=== PATIENT | female | born 1955 | race American Indian/Alaskan Native ===

== ENCOUNTER 2016-04-10 11:03 | Outpatient (CLI) | payer MEDICAID ==
[2016-04-10] MEDS ORDERED: NACL ONE ×2 (12:11→13:13)
--- NOTE | 2016-04-10 15:48 | Nuclear Medicine Report ---
BONE SCAN: History: Right breast cancer. Comparison: Bone scan dated 01/17/16. CT chest abdomen and pelvis performed 01/17/16. After injection of isotope, gamma camera imaging of the bony system was done. There is a normal uptake of isotope throughout the bony structures without areas of significantly increased or decreased uptake. Normal uptake in the urinary system is seen. IMPRESSION: Negative bone scan. No change since 01/17/16.
--- NOTE | 2016-04-10 18:31 | Cat Scan Report ---
FINAL REPORT EXAM: CT ABDOMEN PELVIS W CON HISTORY: MALIGNANT NEOPLASM OF RIGHT BREAST TECHNIQUE: Serial axial images through the abdomen and pelvis with coronal and sagittal reconstruction. 100 milliliters Omni 300 PRIORS: CT abdomen pelvis from 01/17/2016 FINDINGS: There is mild atelectasis in the dependent portion of the lung bases. No pleural effusion is seen. No focal hepatic lesion is identified. The gallbladder, pancreas, spleen and adrenal glands appear within normal limits. Kidneys appear normal. Aorta is normal in caliber. Bladder is decompressed. No gross abnormality is seen in the uterus or adnexa. No free fluid. No gross bowel abnormality is identified. Previously seen sclerotic lesions in the spine, pelvis and proximal left femur are re-identified. These appear similar to the prior study. IMPRESSION: 1. No abnormal mass or fluid collection is identified in the abdomen or pelvis. 2. Sclerotic lesions are re-identified in the axial skeleton and proximal left femur. This is consistent with metastatic disease given the history provided. The appearance is similar to the prior study.
--- NOTE | 2016-04-10 18:41 | Cat Scan Report ---
FINAL REPORT EXAM: CT CHEST W CON HISTORY: MALIGNANT NEOPLASM OF RIGHT BREAST TECHNIQUE: Serial axial images through the chest during intravenous administration of 100 milliliters Omni 300 contrast with coronal and sagittal reconstruction. Abdomen pelvis images are also included. PRIORS: CT scan of the chest from 01/17/2016 FINDINGS: There is mild atelectasis in the dependent portion of the lungs. No pleural effusion is seen. No abnormal mass is identified in the lungs. No mediastinal adenopathy is identified. The heart measures approximately 12.1 centimeters in length. No gross abnormality is seen in the visualized portion of the abdomen. Spiculated lesion in the lateral aspect of the right breast appears similar to the prior study. There are surgical clips in the right axilla. Previously described sclerotic lesions are re-identified in the axial skeleton. These appear similar to the prior study. IMPRESSION: 1. Please refer to report from CT abdomen pelvis from 04/10/2016 for additional information regarding the abdomen and pelvis. 2. Spiculated lesion in the lateral aspect of the right breast is re-identified. This appears similar to the prior study. 3. Sclerotic lesions in the axial skeleton are re-identified. These appear similar to the prior study. This is consistent with metastatic disease.
== END 2016-04-10 11:04 | disposition home or self-care (01) ==
LOC: NM 11:03
PROVIDERS: ATTEND Internal Medicine Hematology & Oncology
DX: C50.411 Malignant neoplasm of upper-outer quadrant of right female breast (principal); J98.11 Atelectasis
CPT/HCPCS: 71260; 74177; 78306; A9503; Q9967

== ENCOUNTER 2016-05-23 09:57 | Outpatient (CLI) | payer MEDICAID ==
--- NOTE | 2016-05-24 08:09 | Vascular Lab Report ---
Right Lower Extremity Venous Duplex Study: Reason for Exam: Pain of the right lower extremity. Comments on the Right: All veins visualized are freely compressible without evidence of internal echogenicity. Flow is spontaneous and phasic throughout. No evidence of acute or chronic thrombus is seen in any of the vessels visualized. Comments on the Left: A limited duplex study was done of the proximal veins of the left lower extremity. All veins visualized are freely compressible without evidence of internal echogenicity. Flow is spontaneous and phasic throughout. No evidence of acute or chronic thrombus is seen in any of the vessels visualized. Impression: No evidence of acute or chronic deep venous thrombosis in the right lower extremity.
== END 2016-05-23 09:58 | disposition home or self-care (01) ==
LOC: VAS 09:57
PROVIDERS: ATTEND Internal Medicine Hematology & Oncology
DX: M79.604 Pain in right leg (principal); C50.411 Malignant neoplasm of upper-outer quadrant of right female breast

== ENCOUNTER 2016-07-27 09:07 | Outpatient (CLI) | payer MEDICAID ==
[2016-07-27 10:24] LABS: Blood Urea Nitrogen 17 mg/dL (7-17)
--- NOTE | 2016-07-27 14:59 | Nuclear Medicine Report ---
BONE SCAN: History: Bone pain. Comparison: 04/10/16. After injection of isotope, gamma camera imaging of the bony system was done. There is a normal uptake of isotope throughout the bony structures without areas of significantly increased or decreased uptake. Normal uptake in the urinary system is seen. IMPRESSION: Unremarkable bone scan. No abnormal radiotracer uptake is appreciated.
--- NOTE | 2016-07-28 14:28 | Cat Scan Report ---
CT CHEST, ABDOMEN AND PELVIS WITH CONTRAST INDICATION: Malignant neoplasm of upper-outer quadrant of right breast. COMPARISON: 04/10/2016. FINDINGS: Chest, abdomen and pelvis CT performed following oral contrast and intravenous administration of 100 cc of Omnipaque 300. CHEST: Unremarkable heart and great vessels. Some motion artifact. No effusions or size significant adenopathy. Patent central airway. Normal thyroid. Stable right axillary surgical clips and approximately 2.8 x 1.2 cm spiculated density deep in the right breast, close to the chest wall as on axial image 56, series 2. No focal suspicious lung masses. Right hemidiaphragm mildly elevated. Nonspecific distal esophageal wall prominence/thickening, not excluded for gastroesophageal reflux and/or hiatal hernia, amongst others. ABDOMEN: Liver, spleen, gallbladder, pancreas, adrenals, nonaneurysmal abdominal aorta with few atherosclerotic changes, IVC and kidneys within normal limits. Opacified GI tract nonobstructive. Mild ascending and transverse colon stool. No ascites or size significant adenopathy. PELVIS: Uterus, adnexa/ovaries, urinary bladder and rectosigmoid appear within normal limits. Few pelvic phleboliths. No free fluid or significant adenopathy. Multiple bony metastases involving, though not limited to T1, T3, T6, T9, T10, T11, T12, L1, L3 and L4 again noted, including multiple in the pelvis, including right acetabulum posteriorly. CONCLUSION: No significant interval change in multiple bony metastases and deep spiculated lesion in the right breast, amongst others, as described. Please correlate. Thank you for the opportunity to participate in this patient's care.
== END 2016-07-27 09:08 | disposition home or self-care (01) ==
LOC: NM 09:07
PROVIDERS: ATTEND Internal Medicine Hematology & Oncology
DX: C79.51 Secondary malignant neoplasm of bone (principal); C50.411 Malignant neoplasm of upper-outer quadrant of right female breast; M89.8X9 Other specified disorders of bone, unspecified site; J98.6 Disorders of diaphragm; I87.8 Other specified disorders of veins
CPT/HCPCS: 36415; 71260; 74177; 78306; 82565; 84520; A9503; Q9967

== ENCOUNTER 2016-12-27 08:55 | Outpatient (CLI) | payer MEDICAID ==
[2016-12-27 09:52] LABS: Blood Urea Nitrogen 15 mg/dL (7-17)
--- NOTE | 2016-12-27 13:19 | Cat Scan Report ---
CT scan of chest abdomen and pelvis with IV contrast: History: Malignant neoplasm upper quadrant right breast Findings: There is ill-defined 2.5 cm diameter spiculated mass identified adjacent to the chest wall at right breast. No endobronchial or mediastinal mass. No mediastinal, hilar or axillary adenopathy. No pleural or pericardial effusion. Normal lung parenchyma. No discrete nodularity or consolidation. Normal liver spleen pancreas and gallbladder. Normal adrenals kidneys and bladder. No free intra-peritoneal fluid or air. No evidence of adenopathy. Gaseous colon with moderate volume stool in colon. No bowel distention. No evidence of appendicitis or diverticulitis. Impression: Spiculated mass right breast. No mediastinal or lung mass. No abdominal mass or adenopathy.
--- NOTE | 2016-12-27 15:17 | Nuclear Medicine Report ---
Whole body bone scan: History: Malignant neoplasm of upper quadrant right breast. Findings: After injection of isotope, gamma camera imaging of the bony system was done. There is a normal uptake of isotope throughout the bony structures without areas of significantly increased or decreased uptake. Normal uptake in the urinary system is seen. IMPRESSION: Normal bone scan.
== END 2016-12-27 08:56 | disposition home or self-care (01) ==
LOC: NM 08:55
PROVIDERS: ATTEND Internal Medicine Hematology & Oncology
DX: C50.411 Malignant neoplasm of upper-outer quadrant of right female breast (principal)
CPT/HCPCS: 36415; 71260; 74177; 78306; 82565; 84520; A9503; Q9967

== ENCOUNTER 2017-02-13 12:48 | Outpatient (CLI) | payer MEDICAID ==
--- NOTE | 2017-02-14 10:35 | Mammography Report ---
BILATERAL DIGITAL SCREENING MAMMOGRAM WITH CAD: 02/13/17 12:48:00 CLINICAL: Routine screening.Breast cancer survivor status post right partial mastectomy ,radiation therapy and chemotherapy. COMPARISON:None available. However, her last mammogram was at [facility]. FINDINGS: The breasts are heterogeneously dense, which may obscure small masses. Right upper outer postsurgical scar. Surgical clips in the right axilla. Mild skin thickening in the right breast. No mass, suspicious architectural distortion or suspicious calcifications. IMPRESSION: No mammographic evidence of malignancy. BI-RADS CATEGORY: 2 -- Benign RECOMMENDATION: Routine mammographic screening in one year. COMMENT: We will attempt to obtain a prior mammogram for comparison. Patient follow-up letters are generated via our [employer] application.
== END 2017-02-13 12:49 | disposition home or self-care (01) ==
LOC: SPVWC 12:48
DX: Z12.31 Encounter for screening mammogram for malignant neoplasm of breast (principal); Z90.11 Acquired absence of right breast and nipple
CPT/HCPCS: 77067; G0202

== ENCOUNTER 2017-05-23 09:17 | Outpatient (CLI) | payer MEDICAID ==
[2017-05-23 10:41] LABS: Blood Urea Nitrogen 9 mg/dL (7-17)
--- NOTE | 2017-05-23 15:01 | Nuclear Medicine Report ---
BONE SCAN: History: Breast cancer, bone pain. After injection of isotope, gamma camera imaging of the bony system was done. There is a normal uptake of isotope throughout the bony structures without areas of significantly increased or decreased uptake. Normal uptake in the urinary system is seen. IMPRESSION: Normal bone scan.
--- NOTE | 2017-05-23 15:58 | Cat Scan Report ---
FINAL REPORT EXAM: CT CHEST W CON HISTORY: MALIGNANT NEOPLASM OF UPPER-OUTER QUARDRANT OF RIGHT BREAST TECHNIQUE: CT of the chest was performed after the administration of intravenous contrast. Reconstructions were included in the coronal and sagittal planes. PRIORS: CT of the chest from 04/10/2016. FINDINGS: Great vessels: The thoracic aorta is normal in caliber. The great vessels are patent. Lungs and airways: No pleural effusion. No pulmonary nodules or masses. No airspace consolidation. The airways are patent. No bronchiectasis. Mild bilateral dependent atelectasis is seen. Mediastinum, heart, pericardium: No mediastinal lymphadenopathy. No cardiac chamber enlargement. No pericardial effusion. Thoracic inlet, chest wall, axilla: Grossly unchanged spiculated right breast lesion. Right axillary lymph node dissection has been performed. The thyroid gland was not imaged. No axillary lymphadenopathy. Upper abdomen: The visualized structures demonstrate no specific abnormality. Bones: Unchanged scattered sclerotic lesions throughout the thoracic spine and right scapula. IMPRESSION: 1. Stable skeletal metastatic disease. 2. Grossly stable right breast lesion.
--- NOTE | 2017-05-23 16:13 | Cat Scan Report ---
FINAL REPORT EXAM: CT ABDOMEN PELVIS W CON HISTORY: MALIGNANT NEOPLASM OF RIGHT BREAST TECHNIQUE: CT of the abdomen and pelvis was performed after the administration of intravenous contrast. Subsequently, CT of the abdomen and pelvis was performed in the delayed phase. Reconstructions were included in the coronal and sagittal planes. PRIORS: 04/10/2016. FINDINGS: Lower thorax: Mild bibasilar atelectasis is seen. Grossly stable right breast lesion. The visualized portions of the heart are normal. Liver: The liver is normal in attenuation. No intrahepatic biliary duct dilation. No focal hepatic lesions. Gallbladder/ biliary system: No cholelithiasis. The common bile duct appears nondilated. Spleen: No splenic lesions are seen. Pancreas: No pancreatic lesions are seen. No pancreatic duct dilation. Kidneys: 3 millimeter nonspecific low-attenuation left renal lesion is unchanged and is too small to characterize but likely represents a small cyst. No right renal lesions. No hydronephrosis. No ureteral filling defects. Adrenal glands: No adrenal masses. Vasculature: The abdominal and pelvic vasculature is patent without variant anatomy. Lymph nodes: No enlarged lymph nodes are seen in the abdomen or pelvis. Bowel, mesentery, peritoneum: No bowel obstruction. No free fluid or free air. The appendix was not definitively seen. No colonic diverticulosis. No bowel wall thickening. Urinary bladder: No filling defects are seen. Pelvis: Normal anatomy is noted. No masses. Abdominal wall: No abdominal wall hernia or other subcutaneous findings. Bones: Degenerative changes are again seen in the spine. Scattered sclerotic lesions within lumbar spine and pelvis are grossly similar. IMPRESSION: 1. No acute intra-abdominal or intrapelvic process. 2. Grossly stable skeletal metastases.
== END 2017-05-23 09:18 | disposition home or self-care (01) ==
LOC: NM 09:17
PROVIDERS: ATTEND Internal Medicine Hematology & Oncology
DX: C79.51 Secondary malignant neoplasm of bone (principal); C50.411 Malignant neoplasm of upper-outer quadrant of right female breast; J98.11 Atelectasis; N64.89 Other specified disorders of breast; N28.89 Other specified disorders of kidney and ureter; M47.896 Other spondylosis, lumbar region; E78.00 Pure hypercholesterolemia, unspecified
CPT/HCPCS: 36415; 71260; 74177; 78306; 82565; 84520; A9503; Q9967